=== PATIENT | male | born 1960 | race Caucasian/White ===

== ENCOUNTER 2023-09-22 13:43 | Outpatient (CLI) | payer OTHER, SELFPAY ==
--- NOTE | ~2023-09-22 | XR_ITS ---
Lumbosacral Spine: AP and lateral views Clinical History: Pain Findings: The normal lordotic curve is maintained. The vertebral bodies and posterior elements are i ntact. The intervertebral disc spaces are preserved. There is emia-zl-fbyjiwkd facet arthropathy fro m L4 to S1. The sacroiliac joints are normally outlined. Impression: Lbdj-ei-jgbgutyg facet arthropathy at the lower lumbar spine, as above. Reviewed, dictated and finalized at location M. RING TRAIN OPERATOR CHIEF Impression: Scnv-jb-nrobhxar facet arthropathy at the lower lumbar spine, as above.
== END 2023-09-22 13:44 | disposition home or self-care (01) ==
PROVIDERS: PCP Physician Assistant; Visit Provider Physician Assistant
DX: M54.16 Radiculopathy, lumbar region (principal); M12.88 Other specific arthropathies, not elsewhere classified, other specified site
CPT/HCPCS: 72100

== ENCOUNTER 2023-10-06 10:21 | Outpatient (CLI) | payer OTHER, SELFPAY ==
--- NOTE | ~2023-10-06 | XR_ITS ---
Clinical Indication: Dyspnea PA and lateral views of the chest: Comparison: None Findings: The lungs are clear, without evidence of focal consolidation or pleural effusion. Cardiome diastinal silhouette is within normal limits. Bones and soft tissues are unremarkable. Impression: Normal chest. Reviewed, dictated and finalized at location . Impression: Normal chest.
--- NOTE | 2023-10-06 10:33 | ECG_ITS ---
Measurements Intervals [place] Rate: 75 P: 86 PA: 146 QRS: 267 QRSD: 88 T: 82 QT: 355 QTc: 398 Interpretive Statements SINUS RHYTHM RSR' IN V1 OR V2, PROBABLY NORMAL VARIANT PATTERN CONSISTENT WITH PULMONARY DISEASE INFERIOR INFARCT, AGE INDETERMINATE ABNORMAL ECG NO PREVIOUS ECG AVAILABLE FOR COMPARISON Electronically Signed On 10-06-2023 11:22:11 CDT by Greyson Hurd D.O.
== END 2023-10-06 10:22 | disposition home or self-care (01) ==
PROVIDERS: PCP Physician Assistant; Visit Provider Physician Assistant
DX: R06.02 Shortness of breath (principal); R94.31 Abnormal electrocardiogram [ECG] [EKG]
CPT/HCPCS: 71046; 93005

== ENCOUNTER 2024-08-24 14:23 | Emergency (ER) | payer OTHER, SELFPAY ==
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
[2024-08-24 14:25] VITALS: BP 154/83; PULSE 86; RESP 20; TEMP 37; O2SAT 99
--- OUTSIDE RECORDS SUMMARY | 2024-08-24 14:28 | XMS_ITS | Clinical Summary ---
Author Organization [facility] Address [address] [place] [address]. [place], [place] [id number] [place] [address] Care Team Providers Care Elevating Grader Operator Name Role Phone Gabriel Vieyra MD Primary Care Provider Eddie Saleh Unavailable [phone] Tony Bradshaw MD Unavailable Allergies Active Allergy Reactions Criticality Noted Date Comments Cephalexin Anaphylaxis High 01/15/2022 Medications lorazepam 0.5 MG tabletIndications: Anxiety Take 1 tablet (0.5 mg total) by mouth 3 (three) times daily. 90 tablet 08/21/19 Active Additional Information Patient taking differently:0.5 mg Oral2 times daily PRN, Reported on 05/13/2022 albuterol sulfate HFA 108 (90 Base) MCG/ACT inhalerIndications :COPD exacerbation ([facility]) Inhale 2 puffs into the lungs every 6 (six) hours as needed for Wheezing. 1 Inhaler 2 03/01/20 19 Active ipratropium-albute rol 0.5-2.5 (3) MG/3ML SolutionIndication s:COPD exacerbation ([facility]) Take 3 mLs by nebulization every 6 (six) hours as needed. 360 mL 2 03/01/20 19 Active nitroglycerin 0.[address] 1 tablet (0.4 mg total) under the tongue every 5 (five) minutes as needed for Chest Pain. 60 tablet 05/22/20 Active ATORVASTATIN 40 MG tabletIndications: Hyperlipidemia, unspecified hyperlipidemia type Take 1 tablet (40 mg total) by mouth nightly at bedtime. 90 tablet 06/11/20 Active tiotropium (SPIRIVA RESPIMAT) 2.5 MCG/ACT inhaler (SPIRIVA RESPIMAT) Inhale 2 puffs into the lungs daily. Please provide assembled. 4 g 01/16/20 Active INCRUSE ELLIPTA 62.5 MCG/INH AEROSOL POWDER, BREATH ACTIVATED 01/19/20 Active umeclidinium-vilan terol 62.5-25 MCG/INH inhaler Inhale 1 puff into the lungs. Active Aspirin 81 MG Cap Take 81 mg by mouth daily. Active aspirin EC (ECOTRIN) 81 MG tablet Take 1 tablet (81 mg total) by mouth daily. 02/24/20 Active hydroCHLOROthiazid e (MICROZIDE) 12.5 MG capsule Take 1 capsule (12.5 mg total) by mouth every morning. 30 capsule 6 02/24/20 Active Active Problems Problem Noted Date Diagnosed Date PAD (peripheral artery disease) 02/23/2022 Primary hypertension 02/23/2022 History of rectal cancer 02/10/2019 Right groin pain 07/11/2018 Tobacco abuse 05/12/2018 Controlled substance agreement signed 02/08/2018 Lumbar paraspinal muscle spasm 01/04/2017 Advanced chronic obstructive pulmonary disease ([facility]) 11/07/2015 Anxiety 11/07/2015 Erectile dysfunction 11/07/2015 Hyperlipidemia 11/07/2015 Hypogonadism in male 11/07/2015 Resolved Problems Problem Noted Date Diagnosed Date Resolved Date Lower back pain 05/12/2018 07/11/2018 Skin cancer, basal cell 11/11/201706/24 Carcinoma of rectum, Costa's A ([facility]) 02/10/2017 07/11/2018 Rectal pain 12/07/2016 07/11/2018 Malignant tumor of colon ([facility]) 05/07/2016 07/11/2018 Immunizations Name Administration Dates Next Due Pneumococcal (Prevnar 13) 03/01/2019 Family History Medical History Relation Comments Coronary artery disease Father Hypertension Father Relation Status Comments Father Maternal Grandfather Maternal Grandmother Paternal Grandfather Paternal Grandmother Social History Tobacco Use Types Packs/Day Years Used Date Smoking Tobacco: Every Day Cigarettes Smokeless Tobacco: Never Tobacco Cessation:Ready to Q uit: No; Counseling Given: Yes Alcohol Use Standard Drinks/Week Comments Yes 6 (1 standard drink = 0.6 oz pur e alcohol) 6 pack a weel Sex and Gender Information Value Date Recorded Sex Assigned at Not on file Legal Sex Male 5:58 PM CDT Gender Identity Not on file Sexual Orientation Not on file 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 Not on file Not on file Last Filed Vital Signs Vital Sign Reading Time Taken Comments Blood Pressure 132/65 05/13/2022 10:08 AM CDT Pulse 57 05/13/2022 10:08 AM CDT Temperature 35.9 ??C (96.6 ??F) 03/04/2022 1:55 PM CD T Respiratory Rate 12 05/13/2022 10:08 AM CDT Oxygen Saturation 99% 05/13/2022 10:08 AM CDT Inhaled Oxygen Concentration - - Weight 85.1 kg (187 lb 9.6 oz) 03/30/2022 12:39 PM CDT Height 175.3 cm (5' 9 ) 03/30/2022 12:39 PM CDT Body Mass Index 27.7 03/30/2022 12:39 PM CDT Plan of Treatment Health Maintenance Due Date Last Done Comments ASCVD Statin 1960 Hepatitis C 1976 DTaP, Tdap and Td Vaccines (1 - Tdap) 1977 Zoster Vaccines (1 of 2) 2008 RSV Immunization or 60+ Years (1 - Risk 60-74 years 1-dose series) 2018 Pneumococcal Vaccine: 65+ Years (2 of 2 - PPSV23 or PCV20) 04/26/2019 03/01/2019 ASCVD LDL 11/24/2020 11/25/2019, 04/24, 05/12/2018, Additional history exists Annual Medicare Wellness Visit 2023 COVID-19 Vaccine ( season) 2024 Influenza Adult (#1) 2024 Colorectal Cancer Screening Colonoscopy (10 Years) 08/01/2029 08/01/2019 Meningococcal B Vaccine Aged Out No l onger eligible based on patient's age to complete this topic Meningococcal Vaccine Aged Out No miguel angel vlad eligible based on patient's age to complete this topic RSV Immunizations Under 20 Months Aged Out No longer eligible based on patient's age to complete this topic Procedures Procedure Name Priority Date/Time Associated Diagnosis Comments LIPID PANEL Routine 11/25/2019 7:53 AM CDT Hyperlipidemia COLONOSCOPY GENERIC (SCAN ORDER) Routine 08/01/2019 10:08 AM RN ACLS from Last 3 Months or Most Recently Relevant to Health Maintenance Results * LIPID PANEL (11/25/2019 7:53 AM CDT) CHOLESTEROL 164 <200 MG/DL 11/25/2019 8:50 AM CDT [facility] Comment: THE NATIONAL LIPID ASSOCIATION AND THE NATIONAL CHOLESTEROL EDUCATION PROGRAM (NCEP) HAVE SET THE FOLLOWING GUIDELINES FOR TOTAL CHOLESTEROL IN ADULTS AGES 18 AND UP. DESIRABLE: <200 BORDERLINE HIGH: 200-239 HIGH: > OR = 240 TRIGLYCERIDES 67 <150 MG/DL 11/25/2019 8:50 AM CDT [facility] Comment: THE NATIONAL LIPID ASSOCIATION AND THE NATIONAL CHOLESTEROL EDUCATION PROGAM (NCEP) HAVE SET THE FOLLOWING GUIDELINES FOR TRIGLYCERIDES IN ADULTS AGES 18 AND UP. NORMAL: <150 BORDERLINE HIGH: 150 TO 199 HIGH: 200 TO 499 VERY HIGH: >499 HDL 57 >39 MG/DL 11/25/2019 8:50 AM CDT [facility] Comment: THE NATIONAL LIPID ASSOCIATION AND THE NATIONAL CHOLESTEROL EDUCATION PROGAM (NCEP) HAVE SET THE FOLLOWING GUIDELINES FOR HDL CHOLESTEROL IN ADULTS AGES 18 AND UP. MALES: >39 FEMALES: >49 LDL (CALCULATED) 94 <100 MG/DL 11/25/19 20 8:50 AM CDT [facility] Comment: THE NATIONAL LIPID ASSOCIATION AND THE NATIONAL CHOLESTEROL EDUCATION PROGAM (NCEP) HAVE SET THE FOLLOWING GUIDELINES FOR LDL CHOLESTEROL IN ADULTS AGES 18 AND UP. DESIRABLE: <100 ABOVE DESIRABLE: 100 TO 129 BORDERLINE HIGH: 130 TO 159 HIGH: 160 TO 189 VERY HIGH: >189 VLDL CALCULATION 13 MG/DL 11/25/19 20 8:50 AM CDT [facility] Comment:REFERENCE RANGE NOT ESTABLISHED CHOL/HDL RATIO 2.9 11/25/2019 8:50 AM CDT [facility] Comment:REFERENCE RANGE NOT ESTABLISHED LDL/HDL 1.6 11/25/2019 8:50 AM CDT [facility] Comment:REFERENCE RANGE NOT ESTABLISHED NON HDL CHOLESTEROL 107 MG/DL 11/25/2019 8:50 AM CDT [facility] Comment:REFERENCE RANGE NOT ESTABLISHED 11/25/2019 7:53 AM CDT us Martha Ellis MD LABORATORY Final Result [facility] [address] [place] [address], * COLONOSCOPY (08/01/2019 10:08 AM RN ACLS) us Documents Scanned SCANNING Edited Result - Final from Last 3 Months or Most Recently Relevant to Health Maintenance Insurance [employer] Care Teams Elevating Grader Operator Relationship Specialty Start Date End Date Gabriel Vieyra MD [address] [place] [phone] PCP - General FAMILY PRACTICE 05/02/21 Eddie Saleh PA [address] [place] [phone] Physician Black [place] Burner Operator PHYSICIAN RETURNED GOODS INSPECTOR 02/18/22 Tony Bradshaw MD [address] [place] [address] Consulting Physician INTERNAL MEDICINE 02/18/22
--- OUTSIDE RECORDS SUMMARY | 2024-08-24 14:28 | XMS_ITS | Encounter Summary ---
Author Organization [facility] Address [address] [place] [address]. [place], [place] [id number] [place] [address] Care Team Providers Care Pattern Changer Name Role Phone Krish Proctor Primary Care Provi merlyn Debora Schafer MD Primary Care Provider + [phone] Martha Ellis MD Primary Care Provider [phone] Gabriel Vieyra MD Primary Care Provider [phone] Eddie Saleh Unavailable [phone] Tony Bradshaw MD Unavailable Encounter Details Date Type Department Care Team (Late st Contact Info) Description 12/30/2018 Abstract [facility] [address] [place] [address] , Generic Conversion, Social History Tobacco Use Types Packs/Day Years Used Date Smoking Tobacco: Every Day Cigarettes Smokeless Tobacco: Never Alcohol Use Standard Drinks/Week Comments Yes 0 (1 standard drink = 0.6 oz pur e alcohol) Occassional Sex and Gender Information Value Date Recorded Sex Assigned at Not on file Legal Sex Male 5:58 PM CDT Gender Identity Not on file Sexual Orientation Not on file documented as of this encounter Plan of Treatment Not on file documented as of this encounter Visit Diagnoses Not on filedocumented in this encounter Care Teams Pattern Changer Relationship Specialty Start Date End Date Krish Proctor APNP PCP - General NURSE PRACTITIONER 05/26/18 03/21/19 Debora Schafer MD PCP - General FAMILY PRACTICE 03/22/19 08/08/19 Martha Ellis MD [address] [place] [phone] PCP - General FAMILY PRACTICE 08/09/19 05/01/21 Gabriel Vieyra MD [address] [place] [phone] PCP - General FAMILY PRACTICE 05/02/21 Eddie Saleh PA [address] [place] [phone] Physician Drop Forger Helper PHYSICIAN BOTTOM TURNING LATHE TURNER 02/18/22 Tony Bradshaw MD [address] [place] [address] Consulting Physician INTERNAL MEDICINE 02/18/22 documented as of this encounter
--- OUTSIDE RECORDS SUMMARY | 2024-08-24 14:28 | XMS_ITS | Encounter Summary ---
Author Organization [facility] Address [address] [place] [address]. [place] [address] [place] [address] Care Team Providers Care Cut Off Saw Operator Pipe Blanks Name Role Phone Gabriel Vieyra MD Primary Care Provider Eddie Saleh Unavailable [phone] Tony Bradshaw MD Unavailable Encounter Details Date Type Department Care Team (Late st Contact Info) Description 02/23/2022 Abstract [facility] [address] [place] [phone] Tony Bradshaw MD [address] 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 No / Unsure 02/23/2022 8:49 AM CDT documented as of this encounter Last Filed Vital Signs Vital Sign Reading Time Taken Comments Blood Pressure - - Pulse - - Temperature - - Respiratory Rate - - Oxygen Saturation - - Inhaled Oxygen Concentration - - Weight - - Height 175.3 cm (5' 9 ) 02/23/2022 6:30 AM CDT Body Mass Index - - documented in this encounter Plan of Treatment Not on file documented as of this encounter Visit Diagnoses Not on filedocumented in this encounter Care Teams Cut Off Saw Operator Pipe Blanks Relationship Specialty Start Date End Date Gabriel Vieyra MD [address] [place] [phone] PCP - General FAMILY PRACTICE 05/02/21 Eddie Saleh PA [address] [place] [phone] Physician Policy Manager PHYSICIAN GREENS TIER 02/18/22 Tony Bradshaw MD [address] [place] [address] Consulting Physician INTERNAL MEDICINE 02/18/22 documented as of this encounter
--- OUTSIDE RECORDS SUMMARY | 2024-08-24 14:28 | XMS_ITS | Data Portability ---
Author Organization [facility] Address [address] [place] [address] Care Team Providers Care Biomedical Manager Name Role Phone BASIA RASMUSSEN Primary Care Provider Assessment No assessment recorded. Plan of Treatment Reminders Order Date Submit Date Provider Last Modified By Organization Details Last Modified Time Details Appointments None recorded. Lab drug screen, urine 2023 [place] In-Office Order, Internal Use Only DO Not Attach Compendium DO Not Attach Compendium, Do Not Delete/merge, [id number] 12:42:07 influenza virus A + B + SARS-CoV-2 (COVID19) Ag panel, rapid IA, upper respirator y specimen 2023 024 jamin In-Office Order, Internal Use Only DO Not Attach Compendium DO Not Attach Compendium, Do Not Delete/merge, [id number] 11:23:24 Referral oncologist referral 2023 024 jacy hooper MD, [facility] [place], [address], 5 10:25:01 orthopedic surgeon referral 2023 024 jacy Rowland MD, [facility] [address], [place], [address], 5 12:00:31 Procedures None recorded. Surgeries None recorded. Imaging US, kidney 2023 024 [facility], [address] [place] [address] [place], [address], 07:39:41 Medication Orders Guaiatussi n AC 10 mg-100 mg/5 mL oral liquid [facility], [place], [address], 12:08:11 azithromyc in 500 mg tablet 2023 [facility], [place], [address], 12:07:52 tramadol 50 mg tablet 2023 [facility], [address], [place], [place], [id number], 12:32:43 hydrochlor othiazide 12.5 mg tablet 2023 [facility], [address], [place], [place], [id number], 17:38:31 Incruse Ellipta 62.5 mcg/actuat ion powder for inhalation 2023 [facility], [address], [place], [place], [id number], 12:32:40 ProAir HFA 90 mcg/actuat ion aerosol inhaler 2023 [facility], [address], [place], [place], [id number], 4 16:15:51 simvastati n 40 mg tablet 2023 [facility], [address], [place], [place], [id number], 17:45:20 ProAir HFA 90 mcg/actuat ion aerosol inhaler 2023 [facility], [address], [place], [id number], 17:45:19 Paxlovid 300 mg (150 mg x 2)-100 mg tablets in a dose pack 2023 [place] [facility], [address], [place], [id number], 11:24:53 benzonatat e 200 mg capsule 2023 [facility], [address], [place], [id number], 11:24:54 Patient TargetsNo targets recorded. Patient Instructions Encounter Date Encounter Id Patient Instructions Last Modified By Organization Details Last Modified Time 11/08/2023 [id number] hernia: care instructions jnanney Not available 11/08/2023 16:06:18 costochondritis: care instructions jnanney Not available 11/08/2023 16:06:18 03/07/2024 [id number] A healthy lifestyle: care instructions jnanney Not available 03/07/2024 12:33:16 05/21/2024 [id number] kidney stone: care instructions jnanney Not available 05/21/2024 16:14:06 learning about diet for kidney stone prevention jnanney Not available 05/21/2024 16:14:06 07/03/2024 [id number] A healthy lifestyle: care instructions jnanney Not available 07/03/2024 17:48:52 07/19/2024 [id number] When You Want to Lose Weight: Care Instructions jnanney Not available 07/19/2024 11:23:24 upper respirator y infection (cold): care instructions jnanney Not available 07/19/2024 11:23:23 Reason for Referral Referring Physician: Basia locke, Family Medicine, Encounter Date: 05/21/2024 Orthopedic Surgeon Referral for Ganglion cyst of left wrist Referring Physician: Basia Rasmussen [facility], Encounter Date: 07/03/2024 Results Created Date Observation Date Name Description Value Unit Range Abnormal Flag Note LastModifiedBy Organization Detail LastModifiedTime 03/07/20 24 03/07/2024 drug scree n, urine Methamphetam ine Negati ve Not Available In-Office Order Internal Use Only DO Not Attach Compendium DO Not Attach Compendium, Do Not Delete/merge, [id number] 03/07/2024 12:31:14 03/07/2003/07/2024 drug scree n, urine THC Negati ve Not Available In-Office Order Internal Use Only DO Not Attach Compendium DO Not Attach Compendium, Do Not Delete/merge, [id number] 03/07/2024 12:31:14 03/07/2003/07/2024 drug scree n, urine Cocaine (Price) Negati ve Not Available In-Office Order Internal Use Only DO Not Attach Compendium DO Not Attach Compendium, Do Not Delete/merge, [id number] 03/07/2024 12:31:14 03/07/2003/07/2024 drug scree n, urine Benzodiazepi ne (Bzo) Negati ve Not Available In-Office Order Internal Use Only DO Not Attach Compendium DO Not Attach Compendium, Do Not Delete/merge, [id number] 03/07/2024 12:31:14 03/07/2003/07/2024 drug scree n, urine Methadone (Mtd) Negati ve Not Available In-Office Order Internal Use Only DO Not Attach Compendium DO Not Attach Compendium, Do Not Delete/merge, [id number] 03/07/2024 12:31:14 03/07/2003/07/2024 drug scree n, urine Buprenorphin e (Bup) Negati ve Not Available In-Office Order Internal Use Only DO Not Attach Compendium DO Not Attach Compendium, Do Not Delete/merge, [id number] 03/07/2024 12:31:14 03/07/2003/07/2024 drug scree n, urine Oxycodone (Oxy) Negati ve Not Available In-Office Order Internal Use Only DO Not Attach Compendium DO Not Attach Compendium, Do Not Delete/merge, 03/07/2024 12:31:14 03/07/20 24 03/07/2024 drug scree n, urine Barbiturates (Bar) Negati ve Not Available In-Office Order Internal Use Only DO Not Attach Compendium DO Not Attach Compendium, Do Not Delete/merge, 03/07/2024 12:31:14 03/07/20 24 03/07/2024 drug scree n, urine MDMA (Ecstacy) Negati ve Not Available In-Office Order Internal Use Only DO Not Attach Compendium DO Not Attach Compendium, Do Not Delete/merge, 03/07/2024 12:31:14 03/07/20 24 03/07/2024 drug scree n, urine Amphetamines (Amp) Negati ve Not Available In-Office Order Internal Use Only DO Not Attach Compendium DO Not Attach Compendium, Do Not Delete/merge, 03/07/2024 12:31:14 03/07/2003/07/2024 drug scree n, urine Opiates (opi) Negati ve Not Available In-Office Order Internal Use Only DO Not Attach Compendium DO Not Attach Compendium, Do Not Delete/merge, 03/07/2024 12:31:14 03/07/2003/07/2024 drug scree n, urine Phencyclidin e (Pcp) Negati ve Not Available In-Office Order Internal Use Only DO Not Attach Compendium DO Not Attach Compendium, Do Not Delete/merge, 03/07/2024 12:31:14 03/07/2003/07/2024 drug scree n, urine Tricyclic Antidepressa nts Invali d Not Available In-Office Order Internal Use Only DO Not Attach Compendium DO Not Attach Compendium, Do Not Delete/merge, 03/07/2024 12:31:14 03/07/20 24 03/07/2024 drug scree n, urine Fentanyl Negati ve Not Available In-Office Order Internal Use Only DO Not Attach Compendium DO Not Attach Compendium, Do Not Delete/merge, [id number] 03/07/2024 12:31:14 07/19/20 24 07/19/2024 influ mel virus A + B + SARS- CoV-2 (COVI D19) Ag panel , rapid IA, upper respi rator y speci men Flu A negati ve Not Available In-Office Order Internal Use Only DO Not Attach Compendium DO Not Attach Compendium, Do Not Delete/merge, [id number] 07/19/2024 11:03:45 07/19/20 24 07/19/2024 influ mel virus A + B + SARS- CoV-2 (COVI D19) Ag panel , rapid IA, upper respi rator y speci men Flu B negati ve Not Available In-Office Order Internal Use Only DO Not Attach Compendium DO Not Attach Compendium, Do Not Delete/merge, [id number] 07/19/2024 11:03:45 07/19/20 24 07/19/2024 influ mel virus A + B + SARS- CoV-2 (COVI D19) Ag panel , rapid IA, upper respi rator y speci men Rapid SARS CoV 2 Ag, QL IA, respiratory specimen positi ve Not Available In-Office Order Internal Use Only DO Not Attach Compendium DO Not Attach Compendium, Do Not Delete/merge, [id number] 07/19/2024 11:03:45 07/02/20 24 06/28/2024 US, shalini y No observ ation record ed. [address] [place], [id number], 07/02/2024 12:16:36 Result Notes None recorded. Problems No Known Problems Procedures Surgical History Date Name Laterality Status Provider Name and Address Organization Details Recorded Time hernia repair completed Kelsy casey MA [facility] 04/04/2023 10:11:31 enucleation of eyeball with insertion of orbital implant completed NNEKA Franz [facility] 04/04/2023 10:11:41 Colostomy completed Kelsy Hathaway MA [facility] 04/04/2023 10:11:55 Imaging Results Imaging Date Name Status [facility]Modified by [facility] Details LastModified Time 06/28/2024 US, kidney completed [facility] , [place], [address], 07/02/2024 12:16:36 Procedure Notes None recorded. Medical Equipment None Reported. Allergies No known drug allergies Medications Name Sig Start Date Stop Date Status Note LastModified by Organization Details LastModified Time benzonatate 200 mg capsule Take 1 capsule 3 times a day by oral route as needed for 30 days. active Not Available Not Available No t Available albuterol sulfate 1.25 mg/3 mL solution for nebulizatio n Inhale 3 mL 4 times a day by inhalatio n route as needed. active Not Available Not Available No t Available tramadol 50 mg tablet Take 1 tablet 3 times a day by oral route as needed for 30 days. active Not Available Not Available No t Available simvastatin 40 mg tablet Take 1 tablet every day by oral route for 90 days. active Not Available Not Available No t Available Guaiatussin AC 10 mg-100 mg/5 mL oral liquid Take 10 mL every 4 hours by oral route as needed. 03/07 completed Not Available Not Available Not Available albuterol sulfate HFA 90 mcg/actuati on aerosol inhaler Inhale 2 puffs every 4 hours by inhalatio n route as needed. active Not Available Not Available No t Available azithromyci n 500 mg tablet Take 1 tablet every day by oral route for 3 days. 03/07 completed Not Available Not Available Not Available simvastatin Take 1 tab by mouth daily 06/08 completed 40mg Not Available Not Available Not Available hydrochloro thiazide 12.5 mg tablet Take 1 tablet every day by oral route for 90 days. 07/03 completed Not Available Not Available Not Available Incruse Ellipta 62.5 mcg/actuati on powder for inhalation INHALE 1 INHALATIO N EVERY DAY BY INHALATIO N ROUTE FOR 30 DAYS. 2024 active Not Available Not Available Not Avai lable Paxlovid 300 mg (150 mg x 2)-100 mg tablets in a dose pack TAKE 3 TABLETS BY MOUTH TWICE A DAY FOR 5 DAYS active Not Available Not Available No t Available Vitals Date Recorded Body height Provider Name an d Address Organization Details Last Updated DateTime 11/08/2023 175.26 cm Diana Martinez MA [facility] 024 15:51:22 Date Recorded Body mass index (BMI) Body weight Provider Name and Address Organization Details Last Updated DateTime 11/08/2023 27.6 kg/m2 26617.34 g Diana Martinez MA [facility] 11/08/2023 15:52:40 Date Recorded Oxygen saturation Oxygen saturation in Arterial blood by Pulse oximetry Provider Name and Address Organization Details Last Updated DateTime 11/08/2023 96 % 96 % Diana Martinez MA [facility] 11/08/2023 15:55:23 Date Recorded Heart rate Respiratory rate Provider N ayanna and Address Organization Details Last Updated DateTime 11/08/2023 95 /min 16 /min Diana Martinez MA [facility] 11/08/2023 15:55:25 Date Recorded Body temperature Provider Name a nd Address Organization Details Last Updated DateTime 11/08/2023 98.6 [degF] Diana Martinez MA [facility] 2023 15:55:28 Date Recorded Body height Provider Name an d Address Organization Details Last Updated DateTime 03/07/2024 175.26 cm Kelsy Hathaway MA [facility] 03/07/20 12:05:30 Date Recorded Body mass index (BMI) Body weight Provider Name and Address Organization Details Last Updated DateTime 03/07/2024 25.1 kg/m2 62908.7 g Kesly Hathaway MA [facility] 03/07/2024 12:05:34 Date Recorded Oxygen saturation Oxygen saturation in Arterial blood by Pulse oximetry Provider Name and Address Organization Details Last Updated DateTime 03/07/2024 98 % 98 % Kelsy Hathaway MA [facility] 03/07/2024 12:10:01 Date Recorded Heart rate Provider Name an d Address Organization Details Last Updated DateTime 03/07/2024 80 /min Kelsy Hathaway MA [facility] 03/07/20 12:10:02 Date Recorded Body height Provider Name an d Address Organization Details Last Updated DateTime 05/21/2024 175.26 cm Kelsy Hathaway MA [facility] 05/21/20 15:46:40 Date Recorded Body mass index (BMI) Body weight Provider Name and Address Organization Details Last Updated DateTime 05/21/2024 27.2 kg/m2 49680 g Kelsy Hathaway MA [facility] 05/21/2024 15:46:44 Date Recorded Heart rate Provider Name an d Address Organization Details Last Updated DateTime 05/21/2024 83 /min Kelsy Hathaway MA [facility] 05/21/20 15:49:28 Date Recorded Oxygen saturation Oxygen saturation in Arterial blood by Pulse oximetry Provider Name and Address Organization Details Last Updated DateTime 05/21/2024 98 % 98 % Kelsy Hathaway MA [facility] 05/21/2024 15:49:30 Date Recorded Body height Provider Name an d Address Organization Details Last Updated DateTime 07/03/2024 175.26 cm Kelsy Hathaway MA [facility] 07/03/20 17:37:32 Date Recorded Body mass index (BMI) Body weight Provider Name and Address Organization Details Last Updated DateTime 07/03/2024 28.3 kg/m2 86505.24 g Kelsy Hathaway MA [facility] 07/03/2024 17:37:37 Date Recorded Oxygen saturation Oxygen saturation in Arterial blood by Pulse oximetry Provider Name and Address Organization Details Last Updated DateTime 07/03/2024 99 % 99 % Kelsy Hathaway MA [facility] 07/03/2024 17:39:34 Date Recorded Heart rate Provider Name an d Address Organization Details Last Updated DateTime 07/03/2024 83.03 /min Kelsy Hathaway MA [facility] 07/03/20 17:39:36 Date Recorded Body height Provider Name an d Address Organization Details Last Updated DateTime 07/19/2024 175.26 cm Kelsy Hathaway MA [facility] 07/19/20 10:39:06 Date Recorded Body mass index (BMI) Body weight Provider Name and Address Organization Details Last Updated DateTime 07/19/2024 27.8 kg/m2 27196.17 g Kelsy Hathaway MA [facility] 07/19/2024 10:39:09 Date Recorded Oxygen saturation Oxygen saturation in Arterial blood by Pulse oximetry Provider Name and Address Organization Details Last Updated DateTime 07/19/2024 96 % 96 % Kelsy Hathaway MA [facility] 07/19/2024 10:41:32 Date Recorded Heart rate Provider Name an d Address Organization Details Last Updated DateTime 07/19/2024 79 /min Kelsy Hathaway MA [facility] 07/19/20 10:41:34 Date Recorded Systolic blood pressure Diastolic blood pressure Provider Name and Address Organization Details Last Updated DateTime 11/08/2023 108 mm[Hg] 66 mm[Hg] Diana Martinez MA [facility] 11/08/2023 15:55:19 Date Recorded Systolic blood pressure Diastolic blood pressure Provider Name and Address Organization Details Last Updated DateTime 03/07/2024 124 mm[Hg] 66 mm[Hg] Kelsy Hathaway MA [facility] 03/07/2024 12:09:58 Date Recorded Systolic blood pressure Diastolic blood pressure Provider Name and Address Organization Details Last Updated DateTime 05/21/2024 146 mm[Hg] 83 mm[Hg] Kelsy Hathaway MA [facility] 05/21/2024 15:49:47 Date Recorded Systolic blood pressure Diastolic blood pressure Provider Name and Address Organization Details Last Updated DateTime 07/03/2024 136 mm[Hg] 85 mm[Hg] Kelsy Hathaway MA [facility] 07/03/2024 17:39:54 Date Recorded Systolic blood pressure Diastolic blood pressure Provider Name and Address Organization Details Last Updated DateTime 07/19/2024 125 mm[Hg] 73 mm[Hg] Kelsy Hathaway MA [facility] 07/19/2024 10:41:55 Social History Question Answer Notes LastModified by Organizat ion Details LastModified Time Tobacco Smoking Status Current Every Day Smoker Kelsy Hathaway [facility] 04/04/2023 10:13:40 What Is Your Level Of Alcohol Consumption? Occasional Information not available 04/04/2023 Are You Blind Or Do You Have Difficulty Seeing? No Information not available 04/04/2023 What Is Your Level Of Caffeine Consumption? Occasional Information not available 04/04/2023 In The 14 Days Before Symptom Onset, Have You Had Close Contact [facility] While That Case Was Ill? No Information not available 11/08/2023 In The 14 Days Before Symptom Onset, Have You Had Close Contact With A Person Who Is Under Investigation For COVID-19 While That Person Was Ill? No Information not available 11/08/2023 Have You Been To An Area Known To Be High Risk For COVID-19? No Information not available 11/08/2023 Are You Currently Employed? No Information not available 04/04/2023 Are You Deaf Or Do You Have Serious Difficulty Hearing? No Information not available 04/04/2023 What Type Of Diet Are You Following? REGULAR Information not available 04/04/2023 Are There Any Guns Present In Your Home? No Information not available 04/04/2023 What Was The Date Of Your Most Recent Tobacco Screening? 07/19/2024 Information not available 07/19/2024 What Is Your Current Pack Years? [email or web address] ars Information not available 04/04/2023 What Is Your Relationship Status? Information not available 04/04/2023 Do You Use Your Seat Belt Or Car Seat Routinely? Yes Information not available 04/04/2023 Do You Have Smoke And Carbon Monoxide Detectors In Your Home? Yes Information not available 04/04/2023 Are You Passively Exposed To Smoke? Yes Information no t available 04/04/2023 How Much Tobacco Do You Smoke? 1 PPD Information not available 09/22/2023 Do You Feel Stressed (tense, Restless, Nervous, Or Anxious, Or Unable To Sleep At Night)? [id number] Information not available 04/04/2023 Do You Use Any Illicit Or Recreational Drugs? No Information not available 04/04/2023 Has Tobacco Cessation Counseling Been Provided? Yes Information not available 04/04/2023 On What Date Was Tobacco Cessation Counseling Provided? 07/19/2024 Information not available 07/19/2024 Do You Or Have You Ever Used Any Other Forms Of Tobacco Or Nicotine? No Information not available 04/04/2023 Sex: Male Functional Status Question Answer Note LastModified by Organization D etails LastModified Time Are you able to care for yourself? Yes Information n ot available 04/04/2023 What is your exercise level? None Information not available 09/22/2023 Mental Status None recorded. Family History Relationship Description Onset Age of this Age Resolved Age Notes LastModified by Organization Details LastModified Time Father Myocardial infarction [email or web address] Not available 04/04 10:12:29 Mother Diabetes mellitus kclarkma Not available 2022 10:12:44 Medical History Condition Response Coronary Artery Disease N Other N High Blood Pressure N Atrial Fibrillation N Thyroid Problems N Kidney or Bladder Problems N GI Problems N Depression N COPD Y Blood Clots N Skin Problems N Eating Disorder N Anemia N Heart Attack ([place]) N Anxiety Disorder N Diabetes N Muscle, Joint, or Bone Problems N Seizures/Epilepsy N Acid Reflux (GERD) N Cancer Y Stroke N Asthma Y Allergies N ADHD N Substance Abuse N High Cholesterol Y Hepatitis N Liver Disease N Schizophrenia N Headaches Y Heart Failure N Osteoporosis N Immunizations Vaccine Type Date Status Note Provider Nam e and Address Organization Details Recorded Time COVID-19, mRNA, LNP-S, PF, 100 mcg/0.5mL dose or 50 mcg/0.25mL dose 1 completed NNEKA Dy[place], [place] [facility] 04/05/2023 14:15:43 COVID-19, mRNA, LNP-S, PF, 100 mcg/0.5mL dose or 50 mcg/0.25mL dose 1 completed NNEKA Dykes, [place] - [facility] 04/05/2023 14:15:43 Pneumococcal conjugate PCV 13 9 completed NNEKA Dy[place], [place] [facility] 04/05/2023 14:15:43 Past Encounters Encounter ID Performer Location Encounter Start Date Encounter Closed Date Diagnosis/Indication Diagnosis SNOMED-CT Code Diagnosis ICD10 Code Diagnosis Note [id number] Basia Rasmussen PA-C [facility] [address] [facility] [place] [address] 04/04/2023 09:45:20 04/07/2023 15:16:58 Acute exacerbation of chronic obstructive pulmonary disease 359158507 J44.1 Mixed hyperlipidemia 267 801202 E78.2 Overweight 088750873 E66 .3 [id number] NICOLE [facility] [address] [place] [address] 06/08/2023 10:10:12 06/17/2023 11:59:54 Edema of lower extremity 754589893 R60.0 Moderate c hronic obstructive pulmonary disease 204564091 J41.0 Overweight 824274101 E66 .3 [id number] Basia Rasmussen PA-C [facility] [address] [place] [address] 09/22/2023 13:44:56 09/23/2023 11:52:18 Lumbar radiculopathy 106339792 M54.16 Overweight 900272658 E66 .3 [id number] Basia Rasmussen PA-C [facility] [address] [place] [address] 10/05/2023 13:45:17 10/08/2023 13:42:56 Dyspnea 181406977 R06.02 Persistent cough 5404431 02 R05.3 [id number] Basia Rasmussen PA-C [facility] [address] [place] [address] 11/08/2023 15:38:56 11/10/2023 14:30:06 Costal chondritis 16510584 M94.0 Hernia of anterior abdominal wall 449046592 K43.9 Acute bron chitis with bronchospasm 57907490 J20.8 [id number] Basia Rasmussen PA-C [facility] [address] [place] [address] 03/07/2024 11:41:24 03/12/2024 15:19:57 Mild persistent asthma 882944715 J45.30 Edema of l ower extremity 276978703 R60.0 Chronic low back pain 27 1636629 M54.50 Long-term drug therapy 490800612 Z79.899 Ganglion c yst of left wrist 0215475818 79878 M67.432 Overweight 438823523 E66 .3 [id number] NICOLE [facility] [address] [place] [address] 05/21/2024 15:26:29 05/24/2024 09:54:21 Moderate persistent asthma 683605120 J45.40 Renal angl e tenderness 664303146 R10.824 Kidney stone 70475144 N2 0.0 History of malignant neoplasm of rectum 397967698 Z85.937 [id number] Basia Rasmussen PA-C [facility] [address] [place] [address] 07/03/2024 17:32:18 07/05/2024 12:19:29 Moderate persistent asthma 013922861 J45.40 Mixed hyperlipidemia 267 358280 E78.2 Ganglion c yst of left wrist 0698239102 93405 M67.432 Overweight 878186376 E66 .3 [id number] Basia Rasmussen PA-C [facility] [address] [place] [address] 07/19/2024 10:31:06 07/23/2024 09:43:53 Upper respiratory infection 73749744 J00 Overweight 990908330 E66 .3 COVID-19 185499354 U07.1 Health Concerns Section Related Observation LastModified by Organization Detai ls LastModified Time None Recorded Concern Status LastModified by Organization Details LastModified Time None Recorded Advance Directives Directive None Recorded Payers Encounter Date Sequence Insurance Name Policy Number Policy Rodriguez Covered Member ID Rodriguez Member ID Guarantor Name 11/08/2023 1 [employer] (MEDICARE REPLACEMENT HMO) Nahid iRggs [id number] Nahid Riggs 11/08/2023 1 [place] WHEN MEDICARE OR MEDICARE REPLACEMENT PRIMARY) Nahid Riggs [id number] Nahid Riggs 03/07/2024 2 [place] Nahid Riggs [id number] Nahid Riggs 03/07/[address] [facility] ON OR AFTER 07/25/2020 - DUAL ELIGIBLE (MEDICARE REPLACEMENT/AD VANTAGE - HMO) Nahid Riggs [id number] Nahid Riggs 05/21/2024 2 [place] Nahid Riggs [id number] Nahid Riggs 05/21/[address] [facility] ON OR AFTER 07/25/2020 - DUAL ELIGIBLE (MEDICARE REPLACEMENT/AD VANTAGE - HMO) Nahid Riggs [id number] Nahid Riggs 07/03/2024 2 [place] Nahid Riggs [id number] Nahid Riggs 07/03/2024 1 [facility] - DOS ON OR AFTER 2020 - DUAL ELIGIBLE (MEDICARE REPLACEMENT/AD VANTAGE - HMO) Nahid Riggs [id number] Nahid Riggs 07/19/2024 2 [place] Nahid Riggs [id number] Nahid Riggs 07/19/2024 1 [facility] - [facility] ON OR AFTER 07/25/2020 - DUAL ELIGIBLE (MEDICARE REPLACEMENT/AD VANTAGE - HMO) Nahid Riggs [id number] Nahid Riggs Notes Date Note Type Note Provider Name and Address Organization Details Recorded Time 11/08/2023 text/html has had tramadol from previous provider for costal chondritis..erin ia pain.... Basia Rasmussen PA-C Attn: [address] [place], [address], [facility] 11/08/2023 16:07:37 03/07/2024 text/html left wrist with a painful knot...also may have kicked something into his left eye..wants tramadol returned for pain in groin and back from hernia repair..his previous pcp gave him Basia Rasmussen PA-C Attn: [address]ing[address] [place], [address], [facility] 03/07/2024 12:33:53 05/21/2024 text/html has left side flank pain..hx of rectal cancer with ostomy...history of kidney stone on left kidney...tongue with a new bump...not painful..has not followed with oncology in awhile..left side pain is sharp and quick... Basia Rasmussen PA-C Attn: [address]ing,[address] [place], [address], [facility] 05/21/2024 16:16:30 07/03/2024 text/html left wrist ganglion cysts...ready to get them out...needs refills.. Basia Rasmussen PA-C Attn: Accounting[address] [place], [address], [facility] 07/03/2024 17:49:01 07/19/2024 text/html started a week ago...had chills and cough...fever Basia Rasmussen PA-C Attn: Accounting,[address] [facility], [place], [address], [facility] 07/19/2024 11:24:44
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
[2024-08-24 15:04] VITALS: BP 148/74; PULSE 70; RESP 20; TEMP 36.9; O2SAT 97
--- OUTSIDE RECORDS SUMMARY | 2024-08-24 15:09 | XMS_ITS | Encounter Summary ---
Author Organization [facility] Address [address] [place] [address]. [place] [address] [place] [address] Care Team Providers Care Clay House Worker Name Role Phone Gabriel Vieyra MD Primary Care Provider [phone] Eddie Saleh Unavailable [phone] Tony Bradshaw MD Unavailable Encounter Details Date Type Department Care Team (Late st Contact Info) Description 02/23/2022 Abstract [facility] [address] [place] [phone] Tony Bradshaw MD [address] 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
--- OUTSIDE RECORDS SUMMARY | 2024-08-24 15:09 | XMS_ITS | Clinical Summary ---
Author Organization [facility] Address [address] [place] [address]. [place], [place] [id number] [place] [address] Care Team Providers Care Tarring Machine Operator Name Role Phone Gabriel Vieyra MD Primary Care Provider Eddie Saleh Unavailable [phone] Tony Bradshaw MD Unavailable Allergies Active Allergy Reactions Criticality Noted Date Comments Cephalexin Anaphylaxis High 01/15/2022 Medications lorazepam 0.5 MG tabletIndications: Anxiety Take 1 tablet (0.5 mg total) by mouth 3 (three) times daily. 90 tablet 08/21/19 Active Additional Information Patient taking differently:0.5 mg Oral2 times daily PRN, Reported on 05/13/2022 albuterol sulfate HFA 108 (90 Base) MCG/ACT inhalerIndications :COPD exacerbation ([facility]) Inhale 2 puffs into the lungs every 6 (six) hours as needed for Wheezing. 1 Inhaler 2 03/01/20 19 Active ipratropium-albute rol 0.5-2.5 (3) MG/3ML SolutionIndication s:COPD exacerbation ([facility]) Take 3 mLs by nebulization every 6 [...] spasm 01/04/2017 Advanced chronic obstructive pulmonary disease ([facility]) 11/07/2015 Anxiety 11/07/2015 Erectile dysfunction 11/07/2015 Hyperlipidemia 11/07/2015 Hypogonadism in male 11/07/2015 Resolved Problems Problem Noted Date Diagnosed Date Resolved Date Lower back pain 05/12/2018 07/11/2018 Skin cancer, basal cell 11/11/201706/24 Carcinoma of rectum, 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 07/11/2018 Rectal pain 12/07/2016 07/11/2018 Malignant tumor of colon ([facility]) 05/07/2016 07/11/2018 Immunizations Name Administration Dates Next [...] 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 DESIRABLE: <200 BORDERLINE HIGH: 200-239 HIGH: > OR = 240 TRIGLYCERIDES 67 <150 MG/DL 11/25/2019 8:50 AM CDT [facility] Comment: THE NATIONAL LIPID ASSOCIATION AND THE NATIONAL CHOLESTEROL EDUCATION PROGAM (NCEP) HAVE SET THE FOLLOWING GUIDELINES FOR TRIGLYCERIDES IN ADULTS AGES 18 AND UP. NORMAL: <150 BORDERLINE HIGH: 150 TO 199 HIGH: 200 TO 499 VERY HIGH: >499 HDL 57 >39 MG/DL 11/25/2019 8:50 AM CDT [facility] Comment: THE NATIONAL LIPID ASSOCIATION AND THE NATIONAL CHOLESTEROL EDUCATION PROGAM (NCEP) HAVE SET THE FOLLOWING GUIDELINES FOR HDL CHOLESTEROL IN ADULTS AGES 18 AND UP. MALES: >39 FEMALES: >49 LDL (CALCULATED) 94 <100 MG/DL 11/25/19 20 8:50 AM CDT [facility] Comment: THE NATIONAL LIPID ASSOCIATION AND THE NATIONAL CHOLESTEROL EDUCATION PROGAM (NCEP) HAVE SET THE FOLLOWING GUIDELINES FOR LDL CHOLESTEROL IN ADULTS AGES 18 AND UP. DESIRABLE: <100 ABOVE DESIRABLE: 100 TO 129 BORDERLINE HIGH: 130 TO 159 HIGH: 160 TO 189 VERY HIGH: >189 VLDL CALCULATION 13 MG/DL 11/25/19 20 8:50 AM CDT [facility] Comment:REFERENCE RANGE NOT ESTABLISHED CHOL/HDL RATIO 2.9 11/25/2019 8:50 AM CDT [facility] Comment:REFERENCE RANGE NOT ESTABLISHED LDL/HDL 1.6 11/25/2019 8:50 AM CDT [facility] Comment:REFERENCE RANGE NOT ESTABLISHED NON HDL CHOLESTEROL 107 MG/DL 11/25/2019 8:50 AM CDT [facility] Comment:REFERENCE RANGE NOT ESTABLISHED 11/25/2019 7:53 AM CDT us Martha Ellis MD LABORATORY Final Result [facility] [address] [place] [address], * COLONOSCOPY (08/01/2019 10:08 AM POKE IN) us Documents Scanned SCANNING Edited Result - Final from Last 3 Months or Most Recently Relevant to Health Maintenance Insurance [place] Care Teams Tarring Machine Operator Relationship Specialty Start Date End Date Gabriel Vieyra MD [address] [place] [phone] PCP - General FAMILY PRACTICE 05/02/21 Eddie Saleh PA [address] [place] [phone] Physician Diesel Maintenance Technician PHYSICIAN CITY DISPATCHER 02/18/22 Tony Bradshaw MD [address] [place] [address] Consulting Physician INTERNAL MEDICINE 02/18/22
--- OUTSIDE RECORDS SUMMARY | 2024-08-24 15:09 | XMS_ITS | Encounter Summary ---
Author Organization [facility] Address [address] [place] [address]. [place], [place] [id number] [place] [phone] Care Team Providers Care Laser Specialist Name Role Phone Krish Proctor Primary Care Provi merlyn Debora Schafer MD Primary Care Provider + [phone] Martha Ellis MD Primary Care Provider [phone] Gabriel Vieyra MD Primary Care Provider [phone] Eddie Saleh Unavailable [phone] Tony Bradshaw MD Unavailable Encounter Details Date Type Department Care Team (Late st Contact Info) Description 12/30/2018 Abstract [facility] [address] [place] [address] , Generic Conversion, Social History [...] on filedocumented in this encounter Care Teams Laser Specialist Relationship Specialty Start Date End Date Krish Proctor APNP PCP - General NURSE PRACTITIONER 05/26/18 03/21/19 Debora Schafer MD PCP - General FAMILY PRACTICE 03/22/19 08/08/19 Martha Ellis MD [address] [place] [phone] PCP - General FAMILY PRACTICE 08/09/19 05/01/21 Gabriel Vieyra MD [address] [place] [phone] PCP - General FAMILY PRACTICE 05/02/21 Eddie Saleh PA [address] [place] [phone] Physician Treating Plant Pumper PHYSICIAN PROTOTYPE ENGINEER MANAGER 02/18/22 Tony Bradshaw MD [address] [place] [address] Consulting Physician INTERNAL MEDICINE 02/18/22 documented as of this encounter
== END 2024-08-24 15:07 | disposition home or self-care (01) ==
PROVIDERS: Emergency Provider Emergency Medicine; PCP Physician Assistant
DX: S09.90XA Unspecified injury of head, initial encounter (principal); W22.8XXA Striking against or struck by other objects, initial encounter
CPT/HCPCS: 70450; 99284